=== PATIENT | male | born 1940 | race Caucasian/White ===

== ENCOUNTER → 2017-02-19 | Outpatient (CLI) | payer MEDICARE ==
[2017-02-19 10:44] LABS: CH 33.1; HCT 40.5 % (39.0-53.0); HDW 2.17; MCH 32.4 pg (25.0-35.0); Macrocytosis Slight; Mean Platelet Volume 7.8; RBC 4.01 m/uL (4.30-5.90); RDW 13.9 % (11.5-15.5); WBC 7.7 k/uL (3.8-10.6)
[2017-02-19 10:56] LABS: Partial Thromboplastin Time 26.3 sec (22.0-30.0); Prothrombin Time 9.9 sec (9.0-12.0)
[2017-02-19 10:57] LABS: Appearance,Urine Clear (Clear); Bilirubin,Urine Negative (Negative); Glucose,Urine (UA) Negative (Negative); Ketones,Urine Negative (Negative); Leukocyte Esterase,Urine Negative (Negative); Nitrite,Urine Negative (Negative); PH, Urine 5.5 (5.0-8.0); Protein,Urine Negative (Negative); Specific Gravity,Urine 1.011 (1.001-1.035); UA Billing (MACRO vs. MICRO) CHEM; Urobilinogen,Urine <2.0 mg/dL (<2.0)
[2017-02-19 11:05] LABS: ALT 47 U/L (21-72); AST 35 U/L (17-59); Alkaline Phosphatase 92 U/L (38-126); Anion Gap 11 mmol/L; Blood Urea Nitrogen 25 mg/dL (9-20); Calcium 9.2 mg/dL (8.4-10.2); Carbon Dioxide 25 mmol/L (22-30); Chloride 104 mmol/L (98-107); Glucose 109 mg/dL (74-99); Non-African American GFR(MDRD) >60 (>60 ml/min/1.73 sqM); Potassium 4.5 mmol/L (3.5-5.1); Sodium 140 mmol/L (137-145); Total Bilirubin 0.5 mg/dL (0.2-1.3); Total Protein 6.7 g/dL (6.3-8.2)
== END | disposition home or self-care (01) ==
LOC: LABPAT 09:55
PROVIDERS: ATTEND Orthopaedic Surgery
DX: Z01.810 Encounter for preprocedural cardiovascular examination (principal); Z01.812 Encounter for preprocedural laboratory examination
CPT/HCPCS: 80053; 81003; 85027; 85610; 85730; 87070

== ENCOUNTER → 2017-08-30 | Outpatient (CLI) | payer MEDICARE ==
--- NOTE | 2017-08-30 14:56 | NM ---
EXAMINATION TYPE: NM bone scan whole body DATE OF EXAM: 08/30/2017 COMPARISON: NONE HISTORY: Pain Delayed whole-body scanning was performed following the injection of 19.6 mCi Tc 99m MDP. Images acq uired 3.5 hours post injection. FINDINGS: There is intense areas of abnormal uptake involving 3 ribs of the anterior lower rib cage on the righ t. Heterogeneous uptake seen involving the posterior lower right rib cage. Abnormal uptake involving the shoulders, right knee, ankles, feet and right wrist are likely post art hritic. There is faint abnormal uptake involving the mid and lower thoracic spine. Photopenic defect involving the left knee likely postsurgical. IMPRESSION: 1. Abnormal uptake involving the vertebral column likely degenerative correlate with x-ray. 2. Abnormal uptake involving the anterior lower right rib cage is nonspecific. There are linear lesli guous pattern suggest previous or recent fracture correlate clinically. 3. Heterogeneous uptake involving the posterior right rib cage may been the basis of more remote trau ma.
== END | disposition home or self-care (01) ==
LOC: RADNMMAIN 10:22
PROVIDERS: ATTEND Orthopaedic Surgery Orthopaedic Surgery of the Spine
DX: R93.7 Abnormal findings on diagnostic imaging of other parts of musculoskeletal system (principal); M54.5 Low back pain
CPT/HCPCS: 78306; A9503

== ENCOUNTER → 2020-09-12 | Outpatient (CLI) | payer MEDICARE ==
--- NOTE | 2020-09-13 04:47 | MR ---
EXAMINATION TYPE: MR MRCP DATE OF EXAM: 09/12/2020 COMPARISON: None HISTORY: Pancreatic pathology elevated amylase lipase wt loss. Multiplanar multiecho imaging of the abdomen was performed without contrast. There are MRCP images. Liver has fairly normal size and contour. Spleen appears normal. Pancreatic duct appears normal. Ther e is no evidence of pancreatic mass. Gallbladder appears normal. The stomach appears intact. There is no adrenal mass. Kidneys have normal size. There are multiple cortical cysts in both kidneys that measure up to 2 cm. There is no hydronephrosis. There is no sign of retroperitoneal adenopathy. There is some narrowing of the distal left and right hepatic ducts and also the origin of the common hepatic duct. I see no filling defect in the bile ducts. The common bile duct measures up to 6 mm. IMPRESSION: There is stricture appearance of the biliary tree at the junction of the left and right hepatic ducts . This could relate to sclerosing cholangitis or tumor. Follow-up is recommended. No evidence of bile duct stone. Normal-appearing gallbladder. Normal pancreas.
== END | disposition home or self-care (01) ==
LOC: RADMRIMAIN 17:20
PROVIDERS: ATTEND Nurse Practitioner
DX: R74.8 Abnormal levels of other serum enzymes (principal)
CPT/HCPCS: 74181

== ENCOUNTER → 2020-11-15 | Outpatient (CLI) | payer MEDICARE ==
--- NOTE | 2020-11-15 14:37 | US ---
EXAMINATION TYPE: US carotid duplex BILAT DATE OF EXAM: 11/15/2020 COMPARISON: NONE CLINICAL HISTORY: I63.9 Cerebral infarction, unspecified. EXAM MEASUREMENTS: RIGHT: Peak Systolic Velocity (PSV) cm/sec ----- Right CCA: 98.7 ----- Right ICA: 87.7 ----- Right ECA: 96.5 ICA/CCA ratio: 0.9 RIGHT: End Diastole cm/sec ----- Right CCA: 31.5 ----- Right ICA: 38.1 ----- Right ECA: 20.5 LEFT: Peak Systolic Velocity (PSV) cm/sec ----- Left CCA: 79.1 ----- Left ICA: 85.2 ----- Left ECA: 131.9 ICA/CCA ratio: 1.1 LEFT: End Diastole cm/sec ----- Left CCA: 20.6 ----- Left ICA: 37.2 ----- Left ECA: 23.6 VERTEBRALS (direction of flow): Right Vertebral: Antegrade Left Vertebral: Antegrade Rhythm: Normal No significant stenosis seen. Bilateral plaque at bulbs. IMPRESSION: Atherosclerosis without sonographic evidence for hemodynamically significant stenosis in the bilatera l carotid arteries. Criteria for Assigning % of Stenosis / Diameter reduction (Estimation based on the indirect measurements of the internal carotid artery velocities (ICA PSV). 1. Normal (no stenosis)=ICA PSV < 125 cm/s: ratio < 2.0: ICA EDV<40 cm/s. 2. Less than 50% stenosis=ICA PSV < 125 cm/s: ratio < 2.0: ICA EDV<40 cm/s. 3. 50 to 69% stenosis=ICA PSV of 125 to 230 cm/s: ration 2.0 ? 4.0: ICA EDV 40-100 cm/s. 4. Greater than 70% stenosis to near occlusion= ICA PSV > 230 cm/s: ratio > 4.0: ICA EDV > 100 cm/s. 5. Near occlusion= ICA PSV velocities may be low or undetectable: variable ratio and ICA EDV. 6. Total occlusion=unable to detect flow.
== END | disposition home or self-care (01) ==
LOC: RADUSWWP 12:59
PROVIDERS: ATTEND Psychiatry & Neurology Neurology
DX: I65.23 Occlusion and stenosis of bilateral carotid arteries (principal); I63.9 Cerebral infarction, unspecified
CPT/HCPCS: 93880

== ENCOUNTER 2020-11-17 12:28 | Inpatient (IN) | payer MEDICARE ==
[2020-11-17] MEDS ORDERED: SODIUM CHLORIDE 0.9% 500 ML 500 ML IV STA (13:00)
--- NOTE | 2020-11-17 13:06 | ED ---
General Adult HPI - General Chief complaint: Neuro Symptoms/Deficit Stated complaint: Slurred Speech/Numbness Time Seen by Provider: 11/17/20 12:53 Source: patient, RN notes reviewed, old records reviewed Mode of arrival: wheelchair Limitations: no limitations - History of Present Illness Initial comments: 80-year-old male who presented for evaluation of word finding difficulty and slurred speech. He has been being worked up as an outpatient by his primary care physician for approximately one month regarding the possibility of stroke. He states that his symptoms with this occurrence began about 5 days ago. He had a fall with minor head injury on Saturday. He's had some gait instability as well as word finding difficulty and dysarthria. The aphasia and dysarthria are apparent each morning and seemed to improve as the day progresses. The do not completely resolve. - Related Data Home Medications Medication Instructions Recorded Confirmed Amitriptyline HCl [Elavil] 100 mg PO HS 11/17/20 11/17/20 Aspirin 81 mg PO DAILY 11/17/20 11/17/20 Atorvastatin [Lipitor] 20 mg PO HS 11/17/20 11/17/20 Budesonide [Pulmicort] 0.5 mg INHALATION RT-TID 11/17/20 11/17/20 HYDROcodone/APAP 5-325MG [[place] 5] 1 tab PO DAILY 11/17/20 11/17/20 Primidone [Mysoline] 50 mg PO HS 11/17/20 11/17/20 Allergies Allergy/AdvReac Type Severity Reaction Status Date / Time No Known Allergies Allergy Verified 11/17/20 14:04 Review of Systems ROS Statement: Those systems with pertinent positive or pertinent negative responses have been documented in the HPI. ROS Other: All systems not noted in ROS Statement are negative. Past Medical History Past Medical History: COPD, CVA/TIA Additional Past Medical History / Comment(s): emphysema, numbnes in both foot, degenerative disk disease, constipation, has cold but getting better per History of Any Multi-Drug Resistant Organisms: None Reported Past Surgical History: Hernia Repair, Orthopedic Surgery Additional Past Surgical History / Comment(s): hemorrhoidectomy, TL 03/19/2017 Past Anesthesia/Blood Transfusion Reactions: No Reported Reaction Past Psychological History: No Psychological Hx Reported Smoking Status: Never smoker Past Alcohol Use History: None Reported Past Drug Use History: None Reported - Past Family History Mother Family Medical History: No Reported History General Exam Limitations: no limitations General appearance: alert, in no apparent distress Head exam: Present: atraumatic, normocephalic Eye exam: Present: normal appearance, PERRL ENT exam: Present: normal exam Neck exam: Present: normal inspection. Absent: tenderness, meningismus Respiratory exam: Present: normal lung sounds bilaterally. Absent: respiratory distress, wheezes Cardiovascular Exam: Present: regular rate, normal rhythm GI/Abdominal exam: Present: soft. Absent: distended, tenderness Extremities exam: Present: normal inspection, normal capillary refill. Absent: calf tenderness Neurological exam: Present: alert, oriented X3, CN II-XII intact, motor sensory deficit (Patient has a mild dysarthria and expressive aphasia.) Psychiatric exam: Present: normal affect, normal mood Skin exam: Present: warm, dry, intact. Absent: cyanosis, diaphoretic Course Vital Signs 11/17/20 12:33 Temperature 97.9 F Pulse Rate 90 Respiratory 18 Rate Blood Pressure 148/91 O2 Sat by Pulse 95 Oximetry EKG Findings - EKG Comments: EKG Findings:: EKG: Normal sinus rhythm, rate of 89, TN interval 180, QRS duration 104, QTC 479, no ST segment elevation. Medical Decision Making - Medical Decision Making 80-year-old male with progressive speech abnormalities. He has an expressive aphasia on exam. His hemodynamics are stable. He is in sinus rhythm. He has no localizing features on extremity exam. He did have a fall with minor head trauma approximately [address] performed, negative for intracranial hemorrhage or mass effect. There is age-related chronic small vessel disease. Laboratory testing is unremarkable. Patient will be admitted for a more urgent evaluation including MRI, neurology consultation. Patient will be started on full strength aspirin 325 mg. Case discussed with Dr. Lundberg who will admit. - Lab Data Result diagrams: 11/17/20 13:02 11/17/20 13:02 Lab Results 11/17/20 11/17/20 11/17/20 Range/Units 13:02 13:02 13:02 WBC 7.0 (3.8-10.6) k/uL RBC 4.24 L (4.30-5.90) m/uL Hgb 13.7 (13.0-17.5) gm/dL Hct 41.8 (39.0-53.0) % MCV 98.6 (80.0-100.0) fL MCH 32.3 (25.0-35.0) pg MCHC 32.8 (31.0-37.0) g/dL RDW 13.1 (11.5-15.5) % Plt Count 223 (150-450) k/uL MPV 7.6 Neutrophils % 69 % Lymphocytes % 22 % Monocytes % 6 % Eosinophils % 1 % Basophils % 1 % Neutrophils # 4.8 (1.3-7.7) k/uL Lymphocytes # 1.5 (1.0-4.8) k/uL Monocytes # 0.4 (0-1.0) k/uL Eosinophils # 0.1 (0-0.7) k/uL Basophils # 0.0 (0-0.2) k/uL PT 9.9 (9.0-12.0) sec INR 0.9 (<1.2) APTT 25.0 (22.0-30.0) sec Sodium 138 (137-145) mmol/L Potassium 4.5 (3.5-5.1) mmol/L Chloride 100 (98-107) mmol/L Carbon Dioxide 32 H (22-30) mmol/L Anion Gap 6 mmol/L BUN 23 H (9-20) mg/dL Creatinine 0.77 (0.66-1.25) mg/dL Est GFR (CKD-EPI)AfAm >90 (>60 ml/min/1.73 sqM) Est GFR (CKD-EPI)NonAf 87 (>60 ml/min/1.73 sqM) Glucose 102 H (74-99) mg/dL Calcium 9.6 (8.4-10.2) mg/dL Total Bilirubin 0.5 (0.2-1.3) mg/dL AST 51 (17-59) U/L ALT 70 H (4-49) U/L Alkaline Phosphatase 96 (38-126) U/L Troponin I (0.000-0.034) ng/mL Total Protein 7.2 (6.3-8.2) g/dL Albumin 4.4 (3.5-5.0) g/dL 11/17/20 Range/Units 13:02 WBC (3.8-10.6) k/uL RBC (4.30-5.90) m/uL Hgb (13.0-17.5) gm/dL Hct (39.0-53.0) % MCV (80.0-100.0) fL MCH (25.0-35.0) pg MCHC (31.0-37.0) g/dL RDW (11.5-15.5) % Plt Count (150-450) k/uL MPV Neutrophils % % Lymphocytes % % Monocytes % % Eosinophils % % Basophils % % Neutrophils # (1.3-7.7) k/uL Lymphocytes # (1.0-4.8) k/uL Monocytes # (0-1.0) k/uL Eosinophils # (0-0.7) k/uL Basophils # (0-0.2) k/uL PT (9.0-12.0) sec INR (<1.2) APTT (22.0-30.0) sec Sodium (137-145) mmol/L Potassium (3.5-5.1) mmol/L Chloride (98-107) mmol/L Carbon Dioxide (22-30) mmol/L Anion Gap mmol/L BUN (9-20) mg/dL Creatinine (0.66-1.25) mg/dL Est GFR (CKD-EPI)AfAm (>60 ml/min/1.73 sqM) Est GFR (CKD-EPI)NonAf (>60 ml/min/1.73 sqM) Glucose (74-99) mg/dL Calcium (8.4-10.2) mg/dL Total Bilirubin (0.2-1.3) mg/dL AST (17-59) U/L ALT (4-49) U/L Alkaline Phosphatase (38-126) U/L Troponin I <0.012 (0.000-0.034) ng/mL Total Protein (6.3-8.2) g/dL Albumin (3.5-5.0) g/dL Disposition Clinical Impression: Cerebrovascular accident (CVA) Disposition: [facility] Condition: Stable Is patient prescribed a controlled substance at d/c from ED?: No Referrals: Zane Grossman MD [Primary Care Provider] - 1-2 days Decision to Admit Reason: Admit from EC Decision Date: 11/17/20 Decision Time: 14:21
[2020-11-17 13:16] LABS: Basophils % (A) 1 %; Eosinophils # (A) 0.1 k/uL (0-0.7); Eosinophils % (A) 1 %; HCT 41.8 % (39.0-53.0); HGB 13.7 gm/dL (13.0-17.5); Lymphocytes # (A) 1.5 k/uL (1.0-4.8); Lymphocytes % (A) 22 %; MCH 32.3 pg (25.0-35.0); MCHC 32.8 g/dL (31.0-37.0); MCV 98.6 fL (80.0-100.0); Mean Platelet Volume 7.6; Monocytes # (A) 0.4 k/uL (0-1.0); Monocytes % (A) 6 %; Neutrophils # (A) 4.8 k/uL (1.3-7.7); Neutrophils % (A) 69 %; Platelet Count 223 k/uL (150-450); RBC 4.24 m/uL (4.30-5.90); RDW 13.1 % (11.5-15.5)
[2020-11-17 13:25] LABS: INR 0.9 (<1.2); Prothrombin Time 9.9 sec (9.0-12.0)
--- NOTE | 2020-11-17 13:28 | CT ---
EXAMINATION TYPE: CT brain wo con for TPA DATE OF EXAM: 11/17/2020 COMPARISON: 10/07/2014 HISTORY: headache CT DLP: 1100.[address] of the brain was performed. The ventricles, basal cisterns and sulci overlying the cerebral convexities demonstrate mild enlargem ent. There is no evidence for intracranial hemorrhage or sulcal effacement. There is decreased attenuation about the periventricular white matter and deep white matter of both c erebral hemispheres, compatible with chronic small vessel ischemia. Differential diagnosis does inclu de demyelination. No mass effects are seen.No midline shift. Osseous calvarium is intact. If symptoms persist consider MRI. IMPRESSION: 1. Age related atrophic and chronic small vessel ischemic change without acute intracranial process s een at this time.
--- NOTE | 2020-11-17 13:32 | XR ---
EXAMINATION TYPE: XR chest 2V DATE OF EXAM: 11/17/2020 COMPARISON: Chest x-ray 10/07/2014 HISTORY: Altered mental status TECHNIQUE: Frontal and lateral views of the chest are obtained. FINDINGS: There is no focal air space opacity, pleural effusion, or pneumothorax seen. The cardiac silhouette size is stable, small. There is hyperinflation of the lungs as on prior with flattening of hemidiaphragms. There are overlying leads. Apical scarring vascular calcifications suspected withi n the carotid artery distribution. The aorta is dense. Patient is rotated. Suspect coronary artery ca lcifications. The osseous structures are intact. IMPRESSION: No acute cardiopulmonary process.
[2020-11-17 13:41] LABS: ALT 70 U/L (4-49); AST 51 U/L (17-59); African American GFR (CKD) >90 (>60 ml/min/1.73 sqM); Albumin 4.4 g/dL (3.5-5.0); Alkaline Phosphatase 96 U/L (38-126); Anion Gap 6 mmol/L; Blood Urea Nitrogen 23 mg/dL (9-20); Calcium 9.6 mg/dL (8.4-10.2); Carbon Dioxide 32 mmol/L (22-30); Chloride 100 mmol/L (98-107); Glucose 102 mg/dL (74-99); Non-African American GFR(CKD) 87 (>60 ml/min/1.73 sqM); Potassium 4.5 mmol/L (3.5-5.1); Sodium 138 mmol/L (137-145); Total Bilirubin 0.5 mg/dL (0.2-1.3); Total Protein 7.2 g/dL (6.3-8.2)
[2020-11-17] MEDS ORDERED: ASPIRIN 325 MG TAB PO STA (14:18)
[2020-11-17] MEDS: SODIUM CHLORIDE 0.9% 1,000 ML IV SCH (14:31)
--- NOTE | 2020-11-17 17:42 | ECHOF ---
Referral Reason:Thrombus MEASUREMENTS -------- HEIGHT: 175.3 cm WEIGHT: 64.4 kg BP: 122/92 RVIDd: 3.3 cm (< 3.3) IVSd: 1.1 cm (0.6 - 1.1) LVIDd: 5.2 cm (3.9 - 5.3) LVPWd: 1.1 cm (0.6 - 1.1) IVSs: 1.5 cm LVIDs: 3.8 cm LVPWs: 1.4 cm LA Diam: 2.7 cm (2.7 - 3.8) Ao Diam: 3.9 cm (2.0 - 3.7) AV Cusp: 2.2 cm (1.5 - 2.6) MV EXCURSION: 11.714 mm (> 18.000) MV EF SLOPE: 44 mm/s (70 - 150) EPSS: 2.3 cm MV E Camilo: 0.66 m/s MV DecT: 214 ms MV A Camilo: 0.85 m/s MV E/A Ratio: 0.78 RAP: 15.00 mmHg RVSP: 34.76 mmHg FINDINGS -------- Sinus rhythm. This was a technically adequate study. The left ventricular size is normal. There is borderline concentric left ventricular hypertrophy. Overall left ventricular systolic function is mild-moderately impaired with, an EF between 40 - 45 % . The right ventricle is mildly enlarged. The left atrium is normal in size. The right atrium is normal in size. Interatrial and interventricular septum intact. There is mild aortic valve sclerosis. There is trace to mild mitral regurgitation. Mild tricuspid regurgitation present. There is mild pulmonary hypertension. The right ventricular systolic pressure, as measured by Doppler, is 34.76mmHg. The pulmonic valve was not well visualized. The aortic root is dilated measuring 3.9cm. Normal inferior vena cava with less than 50% inspiratory collapse consistent with estimated right atr ial pressure of 15 mmHg. There is no pericardial effusion. CONCLUSIONS -------- 1. The left ventricular size is normal. 2. There is borderline concentric left ventricular hypertrophy. 3. Overall left ventricular systolic function is mild-moderately impaired with, an EF between 40 - 45 %. 4. The right ventricle is mildly enlarged. 5. There is mild aortic valve sclerosis. 6. There is trace to mild mitral regurgitation. 7. Mild tricuspid regurgitation present. 8. There is mild pulmonary hypertension. 9. The right ventricular systolic pressure, as measured by Doppler, is 34.76mmHg. 10. The aortic root is dilated measuring 3.9cm. 11. Normal inferior vena cava with less than 50% inspiratory collapse consistent with estimated right atrial pressure of 15 mmHg. 12. There is no pericardial effusion. ENGINEERING AGENT: Leslye Browne RDCS
--- NOTE | 2020-11-17 18:47 | P.HPIM ---
History of Present Illness This is a pleasant 80 years old male with past medical history of COPD/emphysema, chronic numbness in both feet, degenerative disc disease, constipation, history of CVA/TIA. has a neurologist is Dr. Upton (patient was not sure of the name, but it is mentioned in the system) He presents because of acute expressive aphasia, His symptoms is on and off, and heparin 2 days ago, and then this morning, associated with malaise problems and difficulty walking, there was some mention of falls However he denies any weakness in upper or lower extremity, no numbness, no blurred vision or double vision After the patient started developing headache on the right side behind the ear about 6-7/10 in severity and then goes to the popliteal his head. He denies any neck pain currently Others he has no chest pain, denies dyspnea or coughing. No abdominal pain or vomiting. Diarrhea or urinary complaints. No fever He smokes cigarettes occasionally, patient is counseled and advised nicotine patch denies alcohol or illicit drugs. His vitals on admission looks his stable, he is saturating 95% on room air and afebrile. Labs including CBC, INR, BMP, liver enzymes are unremarkable. On intact 1 is negative less than 0.012 Chest x-ray: No acute process. EKG showed normal sinus rhythm at [address]-T changes. CT of the brain is negative for acute process MAPS was checked, he was on [place] 5-325 mg twice a day, last dose was filled on 09/20/20 Review of Systems CONSTITUTIONAL: No fever, no malaise, no fatigue. HEENT: No recent visual problems or hearing problems. Denied any sore throat. CARDIOVASCULAR: No orthopnea, PND, no palpitations, no syncope. PULMONARY: No shortness of breath, no cough, no hemoptysis. GASTROINTESTINAL: No diarrhea, no nausea, no vomiting, no abdominal pain. Normoactive bowel sounds. NEUROLOGICAL: No headaches, no weakness, no numbness. HEMATOLOGICAL: Denies any bleeding or petechiae. GENITOURINARY: Denies any burning micturition, frequency, or urgency. MUSCULOSKELETAL/RHEUMATOLOGICAL: Denies any joint pain, swelling, or any muscle pain. ENDOCRINE: Denies any polyuria or polydipsia. Past Medical History Past Medical History: COPD, CVA/TIA Additional Past Medical History / Comment(s): emphysema, numbnes in both foot, degenerative disk disease, constipation, has cold but getting better per History of Any Multi-Drug Resistant Organisms: None Reported Past Surgical History: Hernia Repair, Orthopedic Surgery Additional Past Surgical History / Comment(s): hemorrhoidectomy, TLH 03/19/2017 Past Anesthesia/Blood Transfusion Reactions: No Reported Reaction Past Psychological History: No Psychological Hx Reported Smoking Status: Never smoker Past Alcohol Use History: None Reported Past Drug Use History: None Reported - Past Family History Mother Family Medical History: No Reported History Medications and Allergies Home Medications Medication Instructions Recorded Confirmed Type Amitriptyline HCl [Elavil] 100 mg PO HS 11/17/20 11/17/20 History Aspirin 81 mg PO DAILY 11/17/20 11/17/20 History Atorvastatin [Lipitor] 20 mg PO HS 11/17/20 11/17/20 History Budesonide [Pulmicort] 0.5 mg INHALATION RT-TID 11/17/20 11/17/20 History HYDROcodone/APAP 5-325MG [[place] 5] 1 tab PO DAILY 11/17/20 11/17/20 History Primidone [Mysoline] 50 mg PO HS 11/17/20 11/17/20 History Allergies Allergy/AdvReac Type Severity Reaction Status Date / Time No Known Allergies Allergy Verified 11/17/20 14:04 Physical Exam Vitals: Vital Signs Temp Pulse Resp BP Pulse Ox 11/17/20 14:33 86 16 146/98 99 11/17/20 12:33 97.9 F 90 18 148/91 95 Intake and Output 11/16/20 11/17/20 11/17/20 22:59 06:59 14:59 Other: Weight 64.41 kg GENERAL: The patient is alert and oriented x3, not in any acute distress. Well developed, well nourished. HEENT: Pupils are round and equally reacting to light. EOMI. No scleral icterus. No conjunctival pallor. Normocephalic, atraumatic. No pharyngeal erythema. No thyromegaly. CARDIOVASCULAR: S1 and S2 present. No murmurs, rubs, or gallops. PULMONARY: Chest is clear to auscultation, no wheezing or crackles. ABDOMEN: Soft, nontender, nondistended, normoactive bowel sounds. No palpable organomegaly. MUSCULOSKELETAL: No joint swelling or deformity. EXTREMITIES: No cyanosis, clubbing, or pedal edema. -NEUROLOGICAL: expressive aphasia while the rest of Cranial nerves are grossly intact, strength 5/5, sensation intact. Meningeal signs absent. Carotid bruit absent. SKIN: No rashes. No petechiae Results CBC & Chem 7: 11/17/20 13:02 11/17/20 13:02 Labs: Abnormal Lab Results - Last 24 Hours (Table) 11/17/20 11/17/20 Range/Units 13:02 13:02 RBC 4.24 L (4.30-5.90) m/uL Carbon Dioxide 32 H (22-30) mmol/L BUN 23 H (9-20) mg/dL Glucose 102 H (74-99) mg/dL ALT 70 H (4-49) U/L Assessment and Plan Assessment: Possible Acute stroke with expressive aphasia and balance problem and headache falls secondary to above History of CVA/TIA COPD/emphysema, no acute exacerbation Plan: This is a pleasant 80 years old male who presents with possible stroke. Continue with aspirin 325 mg, continue with neuro check. Neurologist consult Check echocardiogram with bubble study, carotid Doppler's. Check hemoglobin A1c, vitamin B12 and TSH Speech therapy Therapy and PT/OT evaluation Labs and medication were reviewed.. Continue same treatment. Continue with symptomatic treatment. Resume home medication. Monitor lytes and vitals. DVT and GI prophylaxis. Further recommendations depends on the clinical course of the patient DVT prophylaxis: Subcutaneous heparin GI Prophylaxis: Pepcid PT/OT: Pending Prognosis is guarded
[2020-11-17] MEDS ORDERED: ATORVASTATIN 20 MG TAB PO SCH (21:00)
[2020-11-17] MEDS ORDERED: AMITRIPTYLINE HCL 50 MG TAB PO SCH (21:00)
[2020-11-17] MEDS ORDERED: PRIMIDONE 50 MG TAB PO SCH (21:00)
[2020-11-17] MEDS: BUDESONIDE 0.5 MG/2 ML NEBU INHALATION SCH (21:14)
[2020-11-18] MEDS: SODIUM CHLORIDE 0.9% 1,000 ML IV SCH (03:23)
[2020-11-18 04:03] VITALS: RESP 20
[2020-11-18] MEDS: BUDESONIDE 0.5 MG/2 ML NEBU INHALATION SCH ×2 (07:21→11:51)
[2020-11-18 08:44] LABS: Basophils # (A) 0.1 k/uL (0-0.2); Basophils % (A) 1 %; Eosinophils # (A) 0.1 k/uL (0-0.7); Eosinophils % (A) 2 %; HCT 38.8 % (39.0-53.0); HGB 12.5 gm/dL (13.0-17.5); Lymphocytes # (A) 1.5 k/uL (1.0-4.8); Lymphocytes % (A) 20 %; MCH 32.2 pg (25.0-35.0); MCHC 32.3 g/dL (31.0-37.0); MCV 99.8 fL (80.0-100.0); Mean Platelet Volume 7.8; Monocytes # (A) 0.3 k/uL (0-1.0); Monocytes % (A) 4 %; Neutrophils # (A) 5.4 k/uL (1.3-7.7); Neutrophils % (A) 72 %; Platelet Count 193 k/uL (150-450); RBC 3.89 m/uL (4.30-5.90); RDW 13.2 % (11.5-15.5); WBC 7.5 k/uL (3.8-10.6)
[2020-11-18] MEDS ORDERED: ASPIRIN 325 MG TAB PO SCH (09:00)
[2020-11-18 09:06] LABS: ALT 55 U/L (4-49); AST 44 U/L (17-59); African American GFR (CKD) >90 (>60 ml/min/1.73 sqM); Albumin 3.7 g/dL (3.5-5.0); Alkaline Phosphatase 87 U/L (38-126); Anion Gap 5 mmol/L; Blood Urea Nitrogen 18 mg/dL (9-20); Carbon Dioxide 30 mmol/L (22-30); Chloride 100 mmol/L (98-107); Glucose 160 mg/dL (74-99); Magnesium 1.9 mg/dL (1.6-2.3); Non-African American GFR(CKD) 86 (>60 ml/min/1.73 sqM); Potassium 4.1 mmol/L (3.5-5.1); Sodium 135 mmol/L (137-145); Total Bilirubin 0.5 mg/dL (0.2-1.3); Total Protein 6.2 g/dL (6.3-8.2)
--- NOTE | 2020-11-18 09:42 | P.CNNES ---
History of Present Illness Consult date: 11/18/20 Requesting physician: Lenin Beltrán Reason for Consult: dysarthria and expressive aphasia History of Present Illness: This is a 80-year-old gentleman with medical history of multiple stroke/TIA's, neuropathy over hands and feet, chronic low back pain who presented emergency department on 11/17/2020 because of word finding difficulty and slurred speech. Some of the history is obtained from that patient's (Dorothy) via phone. Per the patient's she stated that the patient has chronic neuropathy over the hands and feet over the last 2 years and it has falls. She stated that the about a year to a year and half ago patient fell in the ditch and he can get out. Possibly he had a TIA during that time because his weakness. Then about 4 weeks ago the patient had difficulty getting his words out which lasted for 2 weeks and resolved and possibly with suspected he had an another TIA. Then the this past Saturday should also had difficulty getting the words out lasted for a day as well as this past Saturday he was in gnostic[place] and the when he was walk-in someone was talking or someone called his name and he turned his neck to the side to look and it seems he fell but he didn't have any jerking of the ext remities, any urinary or bowel incontinence, no loss of consciousness. No history of seizures. Possibly it was felt is because of his neuropathy. Patient used to follow up with a neurologist with Dr. Monzon but per the patient's he did not have any workup so therefore they start seeing Dr. Khadijah caruso for neurological care. Per the the patient had MRI the brain, cervical and lumbar as well as he had EMG of the upper and lower extremities and and had other workup but she does not know the result and patient is supposed to follow up with his neurologist soon to get the results. He is scheduled of getting Gualberto scan this coming up saturday as outpatient to assess whether he has Parkinson disease. She stated that there is a family history of Parkinson's disease but the patient does not have any resting tremor. He has a tremor when the he reaches out for objects which seems more essential. Patient denies of any focal weakness, he said that he has numbness in the lower extremity as well as upper started in the feet he thinks it up to the knees as well as in the hands. Denies of any visual disturbance, denies of any neck pain any headaches, denies any further getting his words out. Some of his medications are aspirin 81 mg, Lipitor 20 mg, primidone 50 mg, [place], Elavil 100 mg daily at bedtime. Some of the workup in the hospital consisted of: Initial vital signs his blood pressure of 148/91, heart rate of 90, respiratory of 18, temperature of 97.9 Oral and pulse ox of 95% room air. CT of the head is reported as age-related atrophic and chronic small vessel ischemic change without acute intracranial process seen at this time. I personally reviewed the CT of the head and I felt the patient had subacute to chronic hypoattenuation over the subcortical left parietal temporal region 2-D echo was reported as there is borderline concentric left ventricular hypertrophy. Left ventricle systolic function is mild to moderately impaired with ejection fraction of 40-45%. Left atrium is normal in size. EKG is reported as normal sinus rhythm. Normal EKG. CBC with differential is unremarkable. Chemistry panel is ALT is slightly elevated of 70 otherwise is seems unremark able. Basic coagulation study is unremarkable Review of Systems Review of system: The 12 point system was reviewed and apparent positive and negative per HPI. Past Medical History Past Medical History: COPD, CVA/TIA Additional Past Medical History / Comment(s): emphysema, numbnes in both foot, degenerative disk disease, constipation, has cold but getting better per History of Any Multi-Drug Resistant Organisms: None Reported Past Surgical History: Hernia Repair, Orthopedic Surgery Additional Past Surgical History / Comment(s): hemorrhoidectomy, [facility] 03/19/2017 Past Anesthesia/Blood Transfusion Reactions: No Reported Reaction Past Psychological History: No Psychological Hx Reported Smoking Status: Never smoker Past Alcohol Use History: None Reported Past Drug Use History: None Reported - Past Family History Mother Family Medical History: No Reported History Medications and Allergies Home Medications Medication Instructions Recorded Confirmed Type Amitriptyline HCl [Elavil] 100 mg PO HS 11/17/20 11/17/20 History Aspirin 81 mg PO DAILY 11/17/20 11/17/20 History Atorvastatin [Lipitor] 20 mg PO HS 11/17/20 11/17/20 History Budesonide [Pulmicort] 0.5 mg INHALATION RT-TID 11/17/20 11/17/20 History HYDROcodone/APAP 5-325MG [[place] 5] 1 tab PO DAILY 11/17/20 11/17/20 History Primidone [Mysoline] 50 mg PO HS 11/17/20 11/17/20 History Allergies Allergy/AdvReac Type Severity Reaction Status Date / Time No Known Allergies Allergy Verified 11/17/20 14:04 Physical Examination - Vital Signs Vital Signs: Vital Signs Temp Pulse Pulse Resp BP BP Pulse Ox 11/17/20 16:13 97.7 F 69 20 165/99 98 11/17/20 14:33 86 16 146/98 99 11/17/20 12:33 97.9 F 90 18 148/91 95 Intake and Output 11/17/20 11/17/20 11/17/20 06:59 14:59 22:59 Intake Total 480 Balance 480 Intake: Oral 480 Other: Weight 64.41 kg 64.41 kg GENERAL: The patient is lying in bed and is not in acute distress. CHEST: The heart rate is regular rate rhythm. No murmurs to auscultation. No carotid bruit bilaterally. LUNG: Clear to auscultation bilaterally no wheezing noted throughout. Not labored breathing. ABDOMEN/GI: Bowel sounds present in all 4 quadrants. No tenderness to palpation throughout. NEUROLOGICAL: Higher mental function: The patient is awake, alert, oriented to self, place and time. Patient is following commands. No aphasia and no neglect. Cranial nerves: The pupils are round, equal and reactive to light and accommodation. Visual adams are full to confrontation throughout. Extraocular movement is intact no nystagmus is noted. Facial sensation is normal to touch throughout. The facial strength is normal throughout. Hearing is normal bilat erally to hand rub. Tongue is midline and moved [id number] without any difficulty. No dysarthria is noted. Shoulder shrug is normal bilaterally. Motor: The strength is 5 over 5 throughout. Normal tone and bulk. No increase tone or cogwheel ridigity of hands/elbows. No resting tremor. Cerebellum: Normal finger to nose bilaterally. Sensation: Sensation is normal to touch throughout. Reflexes (right/left): 2+ throughout upper while lower are 0-1 bilaterally. Plantars are mute bilaterally. Results - Laboratory Findings CBC and BMP: 11/18/20 08:19 11/18/20 08:19 Abnormal Lab Findings: Abnormal Labs 11/17/20 11/17/20 13:02 13:02 RBC 4.24 L Carbon Dioxide 32 H BUN 23 H Glucose 102 H ALT 70 H Assessment and Plan Assessment: Transient episodes Aphasia and dysarthria this past saturday (lasting one day) likely TIA. Falls likely due to neuropathy (has neuropathy for two years)--Is being work-up at his neurologist Neuropathy of lower and upper extremities (unknown cause of neuropathy)---Is being work-up at his neurologist History of multiple TIA's (according to ) Essential tremor Family history of Parkinson's Plan: * In the ED the patient was given aspirin 325 once and was started on aspirin 325 daily. I will not place him on dual antiplateletes because of his falls which will increase risk of bleed. I increased the Lipitor from 20 mg to 40 mg daily at bedtime for secondary stroke prophylaxis. * I ordered carotid duplex. * MRI the brain is ordered by the ED team is pending. * Lipid panel is ordered and is pending * TSH, hemoglobin A1c, folate, vitamin B12 is ordered by the primary team is pending. I ordered Vitamin B6. * PT OT and FAMILY COACH are consulted * Patient has extensive work-up at his neurologist office (MRI Brain, C and L- spine and EMG of upper and lower extremities and pending result to be notified to patient and his . Is schedule for Gualberto scan this coming up Saturday as outpatient to rule out Parkinson's disease). * Continue neuro checks * On continuous cardiac monitoring. * We'll defer the rest of the medical management to primary team. After this work-up the patient is clear and needs to follow-up with his neurologist (Dr. Upton which he has an appointment within 1-2 weeks). The plan was discussed with the patient nurse and his (Dorothy) via phone. Thank you for the consultation. Javon Coombs M.D. Neuro-hospitalist Time with Patient: Greater than 30
--- NOTE | 2020-11-18 10:02 | ECHOF ---
Referral Reason:Rule out heart disease MEASUREMENTS -------- HEIGHT: 175.3 cm WEIGHT: 66.2 kg BP: 139/86 FINDINGS -------- Limited Study Contrast study was performed with 1 iv injections of 8 ccs of agitated normal saline, at rest, and wi th cough. Positive saline bubble study The atrial septal defect shunts from right to left. There is no pericardial effusion. CONCLUSIONS -------- 1. Limited Study 2. Contrast study was performed with 1 iv injections of 8 ccs of agitated normal saline, at rest, and with cough. 3. Positive saline bubble study 4. The atrial septal defect shunts from right to left. 5. There is no pericardial effusion. VACCINE KEY CUSTOMER LEADER: Leslye Browne RDCS
--- NOTE | 2020-11-18 12:20 | P.PN ---
Subjective This is a pleasant 80 years old male with past medical history of COPD/emphysema, chronic numbness in both feet, degenerative disc disease, constipation, history of CVA/TIA. has a neurologist is Dr. Upton (patient was not sure of the name, but it is mentioned in the system) He presents because of acute expressive aphasia, His symptoms is on and off, and heparin 2 days ago, and then this morning, associated with malaise problems and difficulty walking, there was some mention of falls However he denies any weakness in upper or lower extremity, no numbness, no blurred vision or double vision After the patient started developing headache on the right side behind the ear about 6-7/10 in severity and then goes to the popliteal his head. He denies any neck pain currently Others he has no chest pain, denies dyspnea or coughing. No abdominal pain or vomiting. Diarrhea or urinary complaints. No fever He smokes cigarettes occasionally, patient is counseled and advised nicotine patch denies alcohol or illicit drugs. His vitals on admission looks his stable, he is saturating 95% on room air and afebrile. Labs including CBC, INR, BMP, liver enzymes are unremarkable. On intact 1 is negative less than 0.012 Chest x-ray: No acute process. EKG showed normal sinus rhythm at [address]-T changes. CT of the brain is negative for acute process MAPS was checked, he was on [place] 5-325 mg twice a day, last dose was filled on 09/20/20 11/18/2020 Patient clinically the same. I discussed the case with neurology service. Like symptoms is not very acute and his been going on for a few weeks on and off as he told me yesterday. Also he follows up with Dr. Upton where he has extensive workup and he has an appointment with his neurologist this coming Saturday, cannot remember but per spoke to the neurologist. Input from neurology service is appreciated. Hemodynamically and labs look stable. Patient remains on aspirin 325 mg currently. Ejection fraction is 40-45% with mild cardiomyopathy and looks like he has positive bubble study with shunt. MRI of the brain and carotid duplex are pending as well as hemoglobin A1c B-6 B12 and TSH Objective - Vital Signs Vital signs: Vital Signs Temp 97.5 F L 11/18/20 08:00 Pulse 80 11/18/20 11:59 Resp 20 11/18/20 08:00 BP 147/91 11/18/20 08:00 Pulse Ox 98 11/18/20 08:00 Intake & Output 11/17/20 11/18/20 11/18/20 18:59 06:59 18:59 Intake Total 480 540 240 Output Total 1125 525 Balance 480 -709 -064 Weight 64.41 kg 66.224 kg Intake: Oral 480 540 240 Output: Urine 1125 525 Other: Voiding Method Urinal # Voids 1 - Labs CBC & Chem 7: 11/18/20 08:19 11/18/20 08:19 Labs: Abnormal Lab Results - Last 24 Hours (Table) 11/17/20 11/17/20 11/18/20 Range/Units 13:02 13:02 08:19 RBC 4.24 L (4.30-5.90) m/uL Hgb (13.0-17.5) gm/dL Hct (39.0-53.0) % Sodium 135 L (137-145) mmol/L Carbon Dioxide 32 H (22-30) mmol/L BUN 23 H (9-20) mg/dL Glucose 102 H 160 H (74-99) mg/dL ALT 70 H 55 H (4-49) U/L Total Protein 6.2 L (6.3-8.2) g/dL 11/18/20 Range/Units 08:19 RBC 3.89 L (4.30-5.90) m/uL Hgb 12.5 L (13.0-17.5) gm/dL Hct 38.8 L (39.0-53.0) % Sodium (137-145) mmol/L Carbon Dioxide (22-30) mmol/L BUN (9-20) mg/dL Glucose (74-99) mg/dL ALT (4-49) U/L Total Protein (6.3-8.2) g/dL
[2020-11-18 14:43] VITALS: BP 142/89; PULSE 84; TEMP 98.3
--- NOTE | 2020-11-18 15:02 | MR ---
MR brain without contrast HISTORY: Neuro deficit, acute stroke suspected Multiplanar multisequence imaging obtained through the brain Correlation to CT brain dated 11/17/2020 There is no restricted diffusion to suggest subacute infarct. There is no hemorrhage or hydrocephalus . Cortical atrophy is again noted. Fluid and scattered hyperintensity is present periventricular, per icallosal, subcortical white matter. No evident hemorrhage or hydrocephalus. There are normal vascula r flow voids. Orbits show symmetric appearance. Inflammatory change present within the ethmoid air ce lls. The cerebellopontine angles, corpus callosum, pituitary, cervical medullary junction are normal. Inflammatory changes present in the mastoid air cells on the right. Probable lunar infarct at the he ad of the caudate on the right IMPRESSION: Age-related changes of atrophy and probable chronic small vessel ischemia.
[2020-11-18 16:33] LABS: Hemoglobin A1C 5.8 % (4.0-6.0)
[2020-11-18] MEDS ORDERED: ATORVASTATIN 40 MG TAB PO SCH (21:00)
[2020-11-18 21:12] LABS: Chol/HDL Ratio 3.07; Cholesterol 141 mg/dL (0-200); LDL Cholesterol,Calculated 79.8 mg/dL (0.0-131.0)
[2020-11-18 21:32] LABS: Folate, Serum 14.3 ng/mL
== END 2020-11-18 17:22 | disposition home health service (06) | DRG 93 ==
LOC: EC 12:28 → 3SCARD 14:18
PROVIDERS: ADMIT Internal Medicine; ATTEND Internal Medicine
DX: R47.01 Aphasia (principal); R47.1 Dysarthria and anarthria; R47.81 Slurred speech; R29.701 NIHSS score 1; F17.210 Nicotine dependence, cigarettes, uncomplicated; J43.9 Emphysema, unspecified; S09.90XA Unspecified injury of head, initial encounter; W19.XXXA Unspecified fall, initial encounter; G62.9 Polyneuropathy, unspecified; G25.0 Essential tremor; K59.00 Constipation, unspecified; Z79.899 Other long term (current) drug therapy; Z79.82 Long term (current) use of aspirin; Z86.73 Personal history of transient ischemic attack (TIA), and cerebral infarction without residual deficits; Z82.0 Family history of epilepsy and other diseases of the nervous system
CPT/HCPCS: 36415; 70450; 70551; 71046; 80053; 80061; 82607; 82746; 83036; 83735; 84207; 84443; 84484; 85025; 85610; 85730; 93005; 93306; 93308; 94640; 96360; 99285

== ENCOUNTER → 2020-11-22 | Outpatient (CLI) | payer MEDICARE ==
--- NOTE | 2020-11-23 09:16 | NM ---
EXAMINATION TYPE: NM DatScan Brain SPECT DATE OF EXAM: 11/22/2020 COMPARISON: NONE HISTORY: Tremors TECHNIQUE: 10 drops of Lugol's solution was administered 1 hour prior to injection as a thyroid bloc patito agent. After the administration of 4.47 mCi I-123 Ioflupane DaTscan. Images obtained 3 hours p ost injection. SPECT images of the brain were acquired with axial and coronal reconstructions. FINDINGS: The axial SPECT images demonstrate normal background activity. Accounting for head tilt, t here appears to be slight asymmetrically blunted comma-shaped appearance of the right corpus striatum . IMPRESSION: Slightly blunted striatal activity on the left may indicate early changes of idiopathic P arkinson's disease or Parkinsonian syndrome.
== END | disposition home or self-care (01) ==
LOC: RADNMMAIN 10:56
PROVIDERS: ATTEND Psychiatry & Neurology Neurology
DX: G20 Parkinson's disease (principal)
CPT/HCPCS: 78803; A9584

== ENCOUNTER 2024-05-08 02:36 | Emergency (ER) | payer MEDICARE ==
[2024-05-08 02:46] VITALS: RESP 18; TEMP 98.3
--- NOTE | 2024-05-08 02:50 | ED ---
General Adult HPI - General Chief complaint: Fall Stated complaint: Fall Time Seen by Provider: 05/08/24 02:39 Source: patient, EMS, RN notes reviewed, old records reviewed Mode of arrival: EMS - History of Present Illness Initial comments: Patient is an 84-year-old male who presents emergency department following a fall at his nursing facility. Patient presents from [facility]. Patient has a past medical history remarkable for COPD, dementia, hyperlipidemia, and is on Plavix. Exactly how he fell. Did not lose consciousness though. Has no pain. Small superficial abrasion to the cheek. Has no other acute complaints at this time. Is currently at his mental status baseline per staff at the nursing facility. He is ANO x 2-3. Presents for further evaluation. - Related Data Home Medications Medication Instructions Recorded Confirmed Amitriptyline HCl [Elavil] 100 mg PO HS 11/17/20 11/17/20 Aspirin 81 mg PO DAILY 11/17/20 11/17/20 Atorvastatin [Lipitor] 20 mg PO HS 11/17/20 11/17/20 Budesonide [Pulmicort] 0.5 mg INHALATION RT-TID 11/17/20 11/17/20 HYDROcodone/APAP 5-325MG [[place] 1 tab PO DAILY 11/17/20 11/17/20 5-325] Primidone [Mysoline] 50 mg PO HS 11/17/20 11/17/20 Allergies Allergy/AdvReac Type Severity Reaction Status Date / Time No Known Allergies Allergy Verified 11/17/20 14:04 Review of Systems ROS Statement: Those systems with pertinent positive or pertinent negative responses have been documented in the HPI. Review of Systems: CONST: Denies fever EYES: Denies blurry vision ENT: Denies nasal congestion C/V: Denies Chest pain RESP: Denies shortness of breath GI: Denies abdominal pain : Denies dysuria SKIN: Denies rash. MSK: Denies joint pain. NEURO: Denies headache ROS Other: All systems not noted in ROS Statement are negative. Past Medical History Past Medical History: COPD, CVA/TIA Additional Past Medical History / Comment(s): emphysema, numbnes in both foot, degenerative disk disease, constipation, has cold but getting better per History of Any Multi-Drug Resistant Organisms: None Reported Past Surgical History: Hernia Repair, Orthopedic Surgery Additional Past Surgical History / Comment(s): hemorrhoidectomy, TLH 03/19/2017 Past Anesthesia/Blood Transfusion Reactions: No Reported Reaction Past Psychological History: No Psychological Hx Reported Smoking Status: Never smoker Past Alcohol Use History: None Reported Past Drug Use History: None Reported - Past Family History Mother Family Medical History: No Reported History General Exam - General Exam Comments Initial Comments: General: Appears in no acute distress. HEAD: Normal with no signs of head trauma. Negative Bill sign. Negative raccoon eyes. EYES: PERRLA, EOMI, conjunctiva normal, no discharge. Pupils are 2 mm and equal bilaterally. ENT: Hearing grossly intact, normal oropharynx. RESPIRATORY: Clear breath sounds bilaterally. No wheezes, rales, or rhonchi. C/V: Regular rate and rhythm. S1 and S2 auscultated, no edema, peripheral pulses 2+ and intact throughout ABD: Abd is soft, nontender, nondistended EXT: Normal range of motion, no obvious deformity. Pelvis stable. No midline cervical, thoracic, lumbar spine tenderness to palpation. SKIN: No rashes or lesions observed on exposed skin. Very superficial abrasion of the cheek. No other obvious injuries. NEURO: Alert and oriented x 4. Cranial nerves II-XII intact. No focal sensory o r strength deficits. GCS of 15. Course Vital Signs 05/08/24 02:40 Temperature 98.3 F Pulse Rate 84 Respiratory 18 Rate Blood Pressure 147/85 O2 Sat by Pulse 96 Oximetry Medical Decision Making - Medical Decision Making Was pt. sent in by a medical professional or institution (, PA, MANAGER TELEMARKETING, urgent care, hospital, or fci...) When possible be specific @ -Sent from nursing facility, [facility] for evaluation for fall on Plavix. Did you speak to anyone other than the patient for history (EMS, parent, family, police, friend...)? What history was obtained from this source @ -No Did you review nursing and triage notes (agree or disagree)? Why? @ -I reviewed and agree with nursing and triage notes Were old charts reviewed (outside hosp., previous admission, EMS record, old EKG, old radiological studies, urgent care reports/EKG's, fci records)? Report findings @ -Reviewed paperwork as well as medication list from [facility] which shows that the patient is on Plavix. Differential Diagnosis (chest pain, altered mental status, abdominal pain women, abdominal pain men, vaginal bleeding, weakness, fever, dyspnea, syncope, headache, dizziness, GI bleed, back pain, seizure, CVA, palpatations, mental health, musculoskeletal)? @ -Fall, intracranial injury, dehydration. This list is not all inclusive. EKG interpreted by me (3pts min.). @ -As above X-rays interpreted by me (1pt min.). @ -Chest and pelvis x-ray negative for any obvious acute injury. Left upper lobe pulmonary nodule seen. CT interpreted by me (1pt min.). @ -CT brain, C-spine negative for any obvious acute traumatic injury. Left upper lobe pulmonary nodule seen. U/S interpreted by me (1pt. min.). @ -None done What testing was considered but not performed or refused? (CT, X-rays, U/S, labs)? Why? @ -None What meds were considered but not given or refused? Why? @ -None Did you discuss the management of the patient with other professionals (professionals i.e. , PA, MANAGER TELEMARKETING, lab, RT, psych nurse, public health social worker, sports marketing specialist, teacher, forestry technical officer, telehealth case manager)? Give summary @ -No Was smoking cessation discussed for >3mins.? @ -No Was critical care preformed (if so, how long)? @ -No Were there social determinants of health that impacted care today? How? (Homelessness, low income, unemployed, alcoholism, drug addiction, transportation, low edu. Level, literacy, decrease access to med. care, [facility], rehab)? @ -No Was there de-escalation of care discussed even if they declined (Discuss DNR or withdrawal of care, Hospice)? DNR status @ -No What co-morbidities impacted this encounter? (DM, HTN, Smoking, COPD, CAD, Cancer, CVA, ARF, Chemo, Hep., AIDS, mental health diagnosis, sleep apnea, morbid obesity)? @ -Dementia, takes Plavix Was patient admitted / discharged? Hospital course, mention meds given and route, prescriptions, significant lab abnormalities, going to OR and other pertinent info. @ -Based on the patient's presentation and physical exam, presents to the emergency department complaining of fall on Plavix. Does not meet criteria for trauma activation but does meet criteria for code coag. Code coag was activat ed. We will obtain CT brain, C-spine as well as chest and pelvis x-ray and basic labs and EKG. Patient in agreement this plan. He is in no pain and therefore will not be given any pain medications. Tetanus booster will be updated. EKG shows no signs of acute ischemia.laboratory studies returned unremarkable. Imaging negative for any obvious traumatic injury. Patient does have a left upper lobe pulmonary nodule. I discussed results with the patient. He remains asymptomatic at this time. He will be discharged back to his facility. I discussed the pulmonary nodule findings. He thinks his PCP may have mentioned this to him in the past and stated that there is nothing for them to do about it, however I did recommend that he follow-up with them again and possibly a business reporter. He will be given contact information as well as further information regarding pulmonary nodules. He was in agreement this plan. He understands that at worst case it could be cancerous. Patient remains at his baseline mental status at time of discharge. I instructed the patient to follow up with their PCP in the next 1-3 days. I explained that the patient should return to the emergency department if they experience any worsening symptoms. Strict return precautions were discussed with the patient. The patient expressed understanding of these instructions. I answered all questions that the patient had. The patient was discharged home in good condition with their prescriptions and follow up information. Attempted to contact both of the patient's next of kin listed in his chart, Alice Mello as well as Pedro Villavicencio to update them on the patient's status. Both calls went immediately to voicemail. Undiagnosed new problem with uncertain prognosis? @ -No Drug Therapy requiring intensive monitoring for toxicity (Heparin, Nitro, Insulin, Cardizem)? @ -No Were any procedures done? @ -No Diagnosis/symptom? @ -Fall, pulmonary nodule Acute, or Chronic, or Acute on Chronic? @ -Acute Uncomplicated (without systemic symptoms) or Complicated (systemic symptoms)? @ -Complicated Side effects of treatment? @ -None Exacerbation, Progression, or Severe Exacerbation] @ -No Poses a threat to life or bodily function? @ -Unlikely at this time - Lab Data Result diagrams: 05/08/24 02:59 05/08/24 02:59 Lab Results 01/10/25 01/10/25 01/10/25 Range/Units 02:59 02:59 02:59 WBC 6.8 (3.8-10.6) k/uL RBC 3.46 L (4.30-5.90) m/uL Hgb 10.3 L (13.0-17.5) gm/dL Hct 31.3 L (39.0-53.0) % MCV 90.4 D (80.0-100.0) fL MCH 29.6 (25.0-35.0) pg MCHC 32.8 (31.0-37.0) g/dL RDW 15.3 (11.5-15.5) % Plt Count 375 (150-450) k/uL MPV 7.4 Neutrophils % 74 % Lymphocytes % 18 % Monocytes % 5 % Eosinophils % 1 % Basophils % 0 % Neutrophils # 5.1 (1.3-7.7) k/uL Lymphocytes # 1.2 (1.0-4.8) k/uL Monocytes # 0.3 (0-1.0) k/uL Eosinophils # 0.1 (0-0.7) k/uL Basophils # 0.0 (0-0.2) k/uL PT 10.6 (10.0-12.5) sec INR 0.9 (<1.2) APTT 25.0 (22.0-30.0) sec Sodium 136 L (137-145) mmol/L Potassium 4.1 (3.5-5.1) mmol/L Chloride 103 (98-107) mmol/L Carbon Dioxide 28 (22-30) mmol/L Anion Gap 5 mmol/L BUN 25 H (9-20) mg/dL Creatinine 0.76 (0.66-1.25) mg/dL Est GFR (CKD-EPI)AfAm >90 (>60 ml/min/1.73 sqM) Est GFR (CKD-EPI)NonAf 85 (>60 ml/min/1.73 sqM) Glucose 106 H (74-99) mg/dL Calcium 8.9 (8.4-10.2) mg/dL Total Bilirubin 0.3 (0.2-1.3) mg/dL AST 21 (17-59) U/L ALT 7 (4-49) U/L Alkaline Phosphatase 100 (38-126) U/L Total Protein 6.4 (6.3-8.2) g/dL Albumin 3.4 L (3.5-5.0) g/dL Serum Alcohol <10 mg/dL Blood Type Blood Type Recheck Bld Type Recheck Status Antibody Screen Spec Expiration Date 05/08/24 Range/Units 02:59 WBC (3.8-10.6) k/uL RBC (4.30-5.90) m/uL Hgb (13.0-17.5) gm/dL Hct (39.0-53.0) % MCV (80.0-100.0) fL MCH (25.0-35.0) pg MCHC (31.0-37.0) g/dL RDW (11.5-15.5) % Plt Count (150-450) k/uL MPV Neutrophils % % Lymphocytes % % Monocytes % % Eosinophils % % Basophils % % Neutrophils # (1.3-7.7) k/uL Lymphocytes # (1.0-4.8) k/uL Monocytes # (0-1.0) k/uL Eosinophils # (0-0.7) k/uL Basophils # (0-0.2) k/uL PT (10.0-12.5) sec INR (<1.2) APTT (22.0-30.0) sec Sodium (137-145) mmol/L Potassium (3.5-5.1) mmol/L Chloride (98-107) mmol/L Carbon Dioxide (22-30) mmol/L Anion Gap mmol/L BUN (9-20) mg/dL Creatinine (0.66-1.25) mg/dL Est GFR (CKD-EPI)AfAm (>60 ml/min/1.73 sqM) Est GFR (CKD-EPI)NonAf (>60 ml/min/1.73 sqM) Glucose (74-99) mg/dL Calcium (8.4-10.2) mg/dL Total Bilirubin (0.2-1.3) mg/dL AST (17-59) U/L ALT (4-49) U/L Alkaline Phosphatase (38-126) U/L Total Protein (6.3-8.2) g/dL Albumin (3.5-5.0) g/dL Serum Alcohol mg/dL Blood Type O Negative Blood Type Recheck No Previous Record Bld Type Recheck Status CABO Indicated Antibody Screen NEGATIVE Spec Expiration Date 05/11/20247 - EKG Data -: EKG Interpreted by Me EKG Comments: 12-lead Electrocardiogram Interpretation Note EKG was reviewed and interpreted by myself. 12-lead ECG performed at 0243 is interpreted by me as revealing normal sinus rhythm at a rate of 83 beats per minute. [place] is normal. NH interval is 185 ms, QRS duration is 97 ms, QTc is 441 ms.. There were no ST or T wave abnormalities to suggest myocardial ischemia or injury. R wave progression across the precordium was satisfactory. By my interpretation this EKG is non-diagnostic for acute ischemia. Disposition Clinical Impression: Fall, Pulmonary nodule Disposition: HOME SELF-CARE Condition: Good Instructions (If sedation given, give patient instructions): Fall Prevention for Older Adults (ED), Pulmonary Nodules (ED) Additional Instructions: You have a pulmonary nodule of your left upper lung. Pulmonary nodules can, at worst, be cancerous. The remainder of your workup last visit was unremarkable. Pulmonary nodule seen on chest x-ray. You should be obtain repeat imaging in 2 to 3 months and follow-up with your PCP and possibly a business reporter for further monitoring. Follow-up with PCP in 1 to 3 days. Return to the emergency department for any worsening symptoms. Is patient prescribed a controlled substance at d/c from ED?: No Referrals: Zane Grossman MD [Primary Care Provider] - 1-2 days Pilar Kitchen MD [STAFF PHYSICIAN] - 1-2 days Time of Disposition: 04:48
[2024-05-08 03:32] LABS: ALT 7 U/L (4-49); AST 21 U/L (17-59); African American GFR (CKD) >90 (>60 ml/min/1.73 sqM); Albumin 3.4 g/dL (3.5-5.0); Alcohol <10 mg/dL; Alkaline Phosphatase 100 U/L (38-126); Anion Gap 5 mmol/L; Basophils % (A) 0 %; Blood Urea Nitrogen 25 mg/dL (9-20); Calcium 8.9 mg/dL (8.4-10.2); Carbon Dioxide 28 mmol/L (22-30); Chloride 103 mmol/L (98-107); Eosinophils # (A) 0.1 k/uL (0-0.7); Eosinophils % (A) 1 %; Glucose 106 mg/dL (74-99); HCT 31.3 % (39.0-53.0); HGB 10.3 gm/dL (13.0-17.5); Lymphocytes # (A) 1.2 k/uL (1.0-4.8); Lymphocytes % (A) 18 %; MCH 29.6 pg (25.0-35.0); MCHC 32.8 g/dL (31.0-37.0); Mean Platelet Volume 7.4; Monocytes # (A) 0.3 k/uL (0-1.0); Monocytes % (A) 5 %; Neutrophils # (A) 5.1 k/uL (1.3-7.7); Neutrophils % (A) 74 %; Non-African American GFR(CKD) 85 (>60 ml/min/1.73 sqM); Platelet Count 375 k/uL (150-450); Potassium 4.1 mmol/L (3.5-5.1); RBC 3.46 m/uL (4.30-5.90); RDW 15.3 % (11.5-15.5); Sodium 136 mmol/L (137-145); Total Bilirubin 0.3 mg/dL (0.2-1.3); Total Protein 6.4 g/dL (6.3-8.2); WBC 6.8 k/uL (3.8-10.6)
[2024-05-08 03:34] LABS: MCV 90.4 fL (80.0-100.0)
[2024-05-08 03:39] LABS: INR 0.9 (<1.2); Prothrombin Time 10.6 sec (10.0-12.5)
[2024-05-08] MEDS: DIPH,PERTUS(ACELL)TETVAC-LF 0.5 ML VIAL IM ONE (03:39)
--- NOTE | 2024-05-08 04:09 | CT ---
EXAM: CT Head Without Intravenous Contrast CLINICAL HISTORY: ITS.REASON CT Reason: trauma TECHNIQUE: Axial computed tomography images of the head/brain without intravenous contrast. CTDI is 45.2 mGy and DLP is 1086 mGy-cm. This CT exam was performed using one or more of the following dose reduction techniques: automated exposure control, adjustment of the mA and/or kV according to patient size, and/or use of iterative reconstruction technique. COMPARISON: CT Head dated 11/17/2020 FINDINGS: Brain: Volume loss with prominent ventricles and sulci. Moderate periventricular and subcortical white matter hypoattenuation likely reflects chronic small vessel disease. 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 Stable. No hemorrhage. Ventricles: See above. Bones/joints: Unremarkable. No acute fracture. Soft tissues: Unremarkable. Sinuses: Unremarkable as visualized. No acute sinusitis. Mastoid air cells: Unremarkable as visualized. No mastoid effusion. IMPRESSION: No acute findings in the head/brain. EXAM: CT Cervical Spine Without Intravenous Contrast CLINICAL HISTORY: ITS.REASON CT Reason: trauma TECHNIQUE: Axial computed tomography images of the cervical spine without intravenous contrast. CTDI is 10.6 mGy and DLP is 321.3 mGy-cm. This CT exam was performed using one or more of the following dose reduction techniques: automated exposure control, adjustment of the mA and/or kV according to patient size, and/or use of iterative reconstruction technique. COMPARISON: No relevant prior studies available. FINDINGS: Vertebrae: Unremarkable. No acute fracture. Discs/spinal canal/neural foramina: Degenerative changes. Soft tissues: Unremarkable. Lung apices: Partially visualized 2 cm left upper lobe nodule with surrounding architectural distortion. Emphysema. IMPRESSION: 1. No evidence of acute fracture or malalignment. 2. Partially visualized 2 cm left upper lobe nodule with surrounding architectural distortion. Differential diagnosis includes malignancy. Correlate with priors if available. Recommend chest CT/further workup. 3. Emphysema.
--- NOTE | 2024-05-08 04:25 | XR ---
EXAM: XR Pelvis, 1 or 2 Views CLINICAL HISTORY: ITS.REASON XR Reason: Trauma TECHNIQUE: Frontal view of the pelvis. COMPARISON: No relevant prior studies available. FINDINGS: Bones/joints: Right hip arthroplasty. Degenerative changes of the lumbosacral spine. No acute fracture. No dislocation. Soft tissues: Unremarkable. IMPRESSION: 1. No evidence of acute fracture or dislocation based on single frontal view. 2. Right hip arthroplasty.
--- NOTE | 2024-05-08 04:27 | XR ---
EXAM: XR Chest, 1 View CLINICAL HISTORY: ITS.REASON XR Reason: trauma TECHNIQUE: Frontal view of the chest. COMPARISON: Prior CT C-spine today. FINDINGS: Lungs: Left upper lobe irregular opacity correlates with partially visualized nodule seen on the. Rest of the lungs appear clear. Pleural space: Unremarkable. No pneumothorax. Heart: Unremarkable. No cardiomegaly. Mediastinum: Unremarkable. Normal mediastinal contour. Bones/joints: Unremarkable. No acute fracture. IMPRESSION: Left upper lobe irregular opacity correlates with partially visualized nodule seen on the CT C-spine. Recommend further workup.
[2024-05-08 05:19] VITALS: BP 135/79; PULSE 74
== END 2024-05-08 05:19 | disposition home or self-care (01) ==
LOC: EC 02:36
DX: R91.1 Solitary pulmonary nodule (principal); S00.81XA Abrasion of other part of head, initial encounter; F03.90 Unspecified dementia, unspecified severity, without behavioral disturbance, psychotic disturbance, mood disturbance, and anxiety; Z23 Encounter for immunization; W19.XXXA Unspecified fall, initial encounter
CPT/HCPCS: 36415; 93005; 86900; 86901; 80053; 85025; 85610; 85730; 86850; 72170; 71045; 72125; 70450; 90715; 99285; 90471; G0480; 80320